=== PATIENT | female | born 1940 | race African-American/Black ===

== ENCOUNTER 2016-11-21 16:39 | Emergency (ER) | payer OTHER ==
[~2016-11-21] VITALS: Ht 160 cm; Wt 72.6 kg
[~2016-11-21 16:39] MED LIST: ADVAIR 500-501 EACH INH; ALBUTEROL SULF8.5 GM INH; FUROSEMIDE40 MG ORAL; IBUPROFEN600 MG PO; LEVOFLOXACIN500 MG ORAL; PREDNISONE10 MG ORAL; PREDNISONE20 MG ORAL
[2016-11-21] MEDS ORDERED: PredniSONE 20mg tab ORAL ONE (17:00)
[2016-11-21] MEDS ORDERED: Ipratropium 0.02% Inh Soln 2.5ml UD HHN SCH (17:00)
[2016-11-21] MEDS ORDERED: Albuterol ud Inhalation HHN SCH (17:00)
[2016-11-21 17:02] VITALS: BP 111/81
[2016-11-21] MEDS ORDERED: Albuterol ud Inhalation HHN ONE (17:15)
--- NOTE | 2016-11-21 17:59 | Emergency Room Report ---
History of Present Illness General Chief Complaint: Asthma Source: Patient Present Illness HPI 76 YO F presents with acute SOB today, resolved with home albuterol, wants to "get checked." On singulair/advair. Denies fever/chills, SOB, chest pain/ tightness. Asymptomatic now. Also c/o intermittent pain to right hip after her cart got stuck in elevator door at [facility] and she made a sudden move to prevent the cart from being stuck and has had pain to that area. Denies pain with ambulation, limited ROM. Has had hip replacement there previously. Allergies: Coded Allergies: PENICILLIN G (Verified Allergy, Mild, 06/03/09) IODINE (Verified Allergy, Unknown, 09/26/09) MILK (Verified Allergy, Unknown, 02/25/15) Uncoded Allergies: CHOCOLATE (Allergy, Intermediate, Shortness of Breath, 04/21/13) ONIONS (Allergy, Unknown, 12/03/10) Patient History Past Medical History: asthma Past Surgical History: other - right hip replacement Pertinent Family History: none Social History: Denies: alcohol use, drug use, smoking Last Menstrual Period: YRS Now: No Immunizations: UTD Reviewed Nursing Documentation: PMH: Agreed, PSxH: Agreed Nursing Documentation-PMH Past Medical History: No History, Except For Hx Hypertension: No Hx Pacemaker: No Hx Asthma: Yes Hx COPD: No Hx Diabetes: No Hx Cancer: No Hx Gastrointestinal Problems: No Hx Dialysis: No Hx Neurological Problems: No Hx Cerebrovascular Accident: No Hx Transient Ischemic Attacks: No Hx Dementia: No Hx Alzheimer's Disease: No Hx Parkinson's Disease: No Hx Meningitis: No Hx Encephalitis: No Hx Seizures: No Hx Epilepsy: No Hx Multiple Sclerosis: No Hx Cerebral Palsy: No Hx Amyotrophic Lat Sclerosis: No Hx Guillian-[place] Syndrome: No Hx Paralysis: No Hx Peripheral Neuropathy: No Hx Spinal Cord Injury: No Hx Head Trauma: No Hx Traumatic Brain Injury: No Hx Memory Loss: No Hx Concentration Difficulty: No Hx Speech Problem: No Hx Tremors: No Hx Vertigo: No Hx Dizziness: No Hx Syncope: No Hx Headaches: No Hx Aphasia: No Hx Dysphasia: No Hx Numbness: No Hx Weakness: No Hx Fatigue: No Hx Neurologic Surgery: No Hx Brain Shunt: No Review of Systems All Other Systems: negative except mentioned in HPI Physical Exam Vital Signs Date Time Temp Pulse Resp B/P Pulse Ox O2 Delivery O2 Flow Rate FiO2 11/21/16 16:42 98.4 106 18 124/70 95 Room Air Sp02 EP Interpretation: reviewed, normal General Appearance: normal inspection, well appearing, no apparent distress, alert Head: atraumatic ENT: normal ENT inspection, hearing grossly normal, normal voice Neck: normal inspection, full range of motion, supple, no bony tend Respiratory: normal inspection, lungs clear, normal breath sounds, no respiratory distress, no retraction, no wheezing Cardiovascular #1: regular rate, rhythm, no edema Gastrointestinal: normal inspection, normal bowel sounds, non tender, soft, no guarding, no hernia Genitourinary: no CVA tenderness Musculoskeletal: normal inspection, back normal, normal range of motion, non- tender, no calf tenderness, pelvis stable, Violeta's Sign negative, other - No obvious trauma to right hip, thigh. Mild ttp to lateral pelvis. ROM intact Neurologic: normal inspection, alert, oriented x3, responsive, power superintendent III-XII nml as tested, motor strength/tone normal, speech normal Psychiatric: normal inspection, judgement/insight normal, mood/affect normal Skin: normal inspection, normal color, no rash Medical Decision Making Diagnostic Impression: Primary Impression: Asthma Qualified Codes: J45.21 - Mild intermittent asthma with (acute) exacerbation Additional Impression: Right hip pain ER Course ?asthma exacerbation. VSS here. No hypoxia, tachypnea. Asymptomatic. Given history, PO prednisone and 1 neb given here. Xrays of pelvis and right hip negative for acute traumatic injury here. DC home with Prednisone for 3 days, PMD followup States she has enough meds for asthma Other X-Ray Diagnostic Results Other X-Ray Diagnostic Results : X-Ray Ordered: AP pelvis and 2 view of right hip EP Interpretation: Yes Findings: no fractures, no dislocation, no soft tissue swelling, other - Hip replacement in place Number of Views: 1 Last Vital Signs Date Time Temp Pulse Resp B/P Pulse Ox O2 Delivery O2 Flow Rate FiO2 11/21/16 17:26 91 18 100 Room Air 11/21/16 17:02 98.1 111/81 Status: improved Disposition: HOME, SELF-CARE Referrals: NON PHYSICIAN (PCP) NATALIE GALLEGOS M.D. Nov 21, 2016 17:59
[2016-11-21] MEDS ORDERED: PREDNISONE20 MG ORAL (18:26)
[2016-11-21 18:38] VITALS: BP 119/76
--- NOTE | 2016-11-22 11:04 | Diagnostic Imaging Report ---
Indications: hip pain Findings: Two views of the right hip were obtained. There is a right total hip prosthesis. There is no fracture or malalignment. There is a consultation of the femoral artery noted. Impression: No acute injury
--- NOTE | 2016-11-22 11:08 | Diagnostic Imaging Report ---
Indication: pain Findings: Single AP view of the pelvis was performed. The bones are osteopenic. There is a right hip prosthesis. There is no fracture or malalignment. Impression: No acute injury identified
--- NOTE | 2016-11-22 23:21 | Cardiology Report ---
APPROVED REPORT EKG Measurement Heart [id number] Normal sinus rhythm Low voltage QRS Cannot rule out Anterior infarct, age undetermined Abnormal ECG
== END 2016-11-21 18:46 | disposition home or self-care (01) ==
LOC: EMR 17:10
DX: J45.21 Mild intermittent asthma with (acute) exacerbation (principal); M25.551 Pain in right hip; Z88.0 Allergy status to penicillin; Z91.011 Allergy to milk products; Z91.018 Allergy to other foods; Z96.641 Presence of right artificial hip joint
CPT/HCPCS: 72170; 93005; 94640; 94664; 99283

== ENCOUNTER 2017-06-14 08:28 | Outpatient (RCR) | payer OTHER | END 2017-06-23 | disposition home or self-care (01) | LOC: PTY 08:28 | DX: Z96.652 Presence of left artificial knee joint (principal) | CPT/HCPCS: 97110; 97140; 97162; G0283 ==

== ENCOUNTER 2017-07-23 08:15 | Outpatient (RCR) | payer OTHER | END 2017-07-24 | disposition home or self-care (01) | LOC: PTY 08:15 | DX: Z96.652 Presence of left artificial knee joint (principal) | CPT/HCPCS: 97110; 97140; G0283 ==

== ENCOUNTER 2017-08-13 08:26 | Outpatient (RCR) | payer OTHER | END 2017-08-23 | disposition home or self-care (01) | LOC: PTY 08:26 | DX: R26.89 Other abnormalities of gait and mobility (principal); Z96.652 Presence of left artificial knee joint | CPT/HCPCS: 97110; G0283 ==

== ENCOUNTER 2017-08-30 15:41 | Outpatient (RCR) | payer OTHER | END 2017-09-23 | disposition home or self-care (01) | LOC: PTY 15:41 | DX: M25.562 Pain in left knee (principal); R26.89 Other abnormalities of gait and mobility; Z96.652 Presence of left artificial knee joint | CPT/HCPCS: 97110; G0283 ==